=== PATIENT | female | born 1965 ===

== ENCOUNTER 2017-11-02 08:44 | Emergency (ER) | payer OTHER ==
[2017-11-02 09:11] VITALS: BP 123/79
--- NOTE | 2017-11-02 09:21 | UC ---
Throat Pain/Nasal Castillo HPI - HPI Summary HPI Summary: sinus pain and pressure x 5 weeks nasal congestion , pnd , cough , no fever, no chills - History of Current Complaint Chief Complaint: UCRespiratory Stated Complaint: SINUS Time Seen by Provider: 11/02/17 09:15 Hx Obtained From: Patient Onset/Duration: Gradual Onset, Lasting Weeks - 5, Still Present Severity: Moderate Pain Intensity: 7 Cough: Nonproductive Associated Signs & Symptoms: Positive: Sinus Discomfort, Nasal Discharge. Negative: Wheezing, Hoarseness, Fever, Vomiting, Rash - Allergies/Home Medications Allergies/Adverse Reactions: Allergies Allergy/AdvReac Type Severity Reaction Status Date / Time Penicillins Allergy See Comment Verified 11/02/17 09:04 Home Medications: Home Medications Omeprazole CAP* [Prilosec CAP* 20 MG] 20 mg PO DAILY 11/02/17 [History Confirmed 11/02/17] Simvastatin TAB(NF) [Zocor(NF)] 10 mg PO BEDTIME 11/02/17 [History Confirmed ] PMH/Surg Hx/FS Hx/Imm Hx GI/ History: Gastroesophageal Reflux - Surgical History Surgical History: Yes Surgery Procedure, Year, and Place: sinus. tubal ligation. back surgery - Family History Known Family History: Negative: Diabetes - Social History Alcohol Use: Daily Alcohol Amount: 2 beers Substance Use Type: None Smoking Status (MU): Former Smoker When Did the Patient Quit Smoking/Using Tobacco: 2016 Review of Systems Constitutional: Negative Skin: Negative Eyes: Negative ENT: Sore Throat, Nasal Discharge Respiratory: Cough Cardiovascular: Negative Gastrointestinal: Negative Is Patient Immunocompromised?: No All Other Systems Reviewed And Are Negative: Yes Physical Exam Triage Information Reviewed: Yes Appearance: Well-Appearing, No Pain Distress, Well-Nourished Vital Signs: Initial Vital Signs Temp 99.1 F 11/02/17 09:05 Pulse 73 11/02/17 09:05 Resp 18 11/02/17 09:05 BP 123/79 11/02/17 09:05 Pulse Ox 99 11/02/17 09:05 Vital Signs Reviewed: Yes Eyes: Positive: Conjunctiva Clear ENT: Positive: Normal ENT inspection, Hearing grossly normal, Pharyngeal erythema, Nasal congestion, Nasal drainage, TMs normal, Sinus tenderness. Negative: TM bulging, TM dull, TM red, Tonsillar swelling, Tonsillar exudate Neck: Positive: Supple, Nontender, No Lymphadenopathy Respiratory: Positive: Chest non-tender, Lungs clear, Normal breath sounds Cardiovascular: Positive: RRR, No Murmur, Pulses Normal, Brisk Capillary Refill Throat Pain/Nasal Course/Dx - Differential Dx/Diagnosis Provider Diagnoses: sinusitis Discharge - Discharge Plan Condition: Stable Disposition: HOME Prescriptions: Azithromycin TAB* [Zithromax TAB (Z-MORGAN) 250 mg #6 tabs] 2 tab PO .TODAY, THEN 1 DAILY #1 morgan Patient Education Materials: Sinusitis (ED) Referrals: Veronica Last MD [Primary Care Provider] - If Needed
== END 2017-11-02 09:23 | disposition home or self-care (01) ==
LOC: UCCORT 08:44
DX: J32.9 Chronic sinusitis, unspecified (principal); K21.9 Gastro-esophageal reflux disease without esophagitis; Z87.891 Personal history of nicotine dependence
CPT/HCPCS: 99202; G0463